=== PATIENT | male | born 1950 | race Asian ===

== ENCOUNTER → 2017-07-09 | Outpatient (CLI) | payer BC ==
[~2017-07-09] MED LIST: AMLO-110 PO; ENAL10TA88 PO; IBUP-103 PO; INSU1INJ SC
--- NOTE | 2017-07-09 08:53 | DIAGNOSTIC IMAGING REPORT ---
MRI LUMBAR SPINE W/O CONTRAST CLINICAL HISTORY: RIGHT LEG WEAKNESS TECHNIQUE: Sagittal and axial T1, T2 and STIR images were obtained. COMPARISON STUDY: No previous studies for comparison. OBSERVATIONS: The coronal sales support technician images there is a contour deformity involving the midpole of the right kidney laterally. This cannot be further characterized on this study. An ultrasound of the kidneys might be considered in follow-up. The vertebral bodies and posterior elements appear intact. There is no abnormal bony signal present to suggest a marrow replacement process. T12-L1 level: There is a tiny left paracentral disc protrusion. There is no significant spinal or foraminal stenosis. L1-2: No disc protrusions or extrusions. No evidence of spinal canal or neural foraminal compromise. L2-3: No disc protrusions or extrusions. No evidence of spinal canal or neural foraminal compromise. L3-4: No disc protrusions or extrusions. No evidence of spinal canal or neural foraminal compromise. L4-5: There is a minimal circumferential disc bulge. There is no significant spinal or foraminal stenosis L5-S1: There is a mild circumferential disc bulge. There is no significant spinal or foraminal stenosis. The conus medullaris and cauda equina appear normal. IMPRESSION: 1. Tiny left paracentral disc protrusion at the T12-L1 level 2. Mild disc bulges at the L4-5, and L5-S1 levels 3. No significant spinal or foraminal stenosis 4. Equivocal 18 mm right renal mass Electronically signed by: Edwardo Vasquez M.D. 07/09/2017 8:52 AM Dictated Date/Time: 07/09/2017 8:41 AM
== END | disposition home or self-care (01) ==
LOC: C.MRI 07:11
PROVIDERS: ATTEND Anesthesiology
DX: M62.81 Muscle weakness (generalized) (principal)